=== PATIENT | male | born 1970 | race Caucasian/White ===

== ENCOUNTER 2024-05-22 09:42 | Outpatient (CLI) | payer BC, SELFPAY ==
--- NOTE | 2024-05-22 10:18 | MR_ITS ---
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 Software platform sequences were performed using the Siem[employer] MR B19 platform. A set of three-plane, low-resolution, large [id number] localizers were initially acquired. Then axial, coronal, sagittal TrueFISP, as well as axial HASTE images, were obtained. These were followed by gated TrueFISP breathold cinematic sequences obtained in the short axis with 8 mm slices and 2 mm gaps, 2-chamber (vertical long axis), 3-chamber, 4-chamber (horizontal long axis). A bolus of contrast was injected intravenously with first-pass sequences obtained in the short axis and four-chamber planes. After approximately 10 minutes, a TI christian science practitioner sequence was performed to determine the optimal TI time. Using the optimized TI time, delayed contrast enhancement segmented inversion???recovery TurboFLASH sequences were obtained in the short axis, 2-chamber, 3-chamber, and 4-chamber projections. 2D-velocity phase mapping was performed. Functional parameters were calculated by offline analysis on an independent workstation ([employer], [employer]). Contrast: ProHance??? (Gadoteridol) FINDINGS MORPHOLOGY AND FUNCTION Left ventricle: The left ventricle is normal in size. The indexed left ventricular end-diastolic volume (LVEDVi) is 71 ml/m2 (reference range 57-105 ml/m2 in males, 56-96 ml/m2 in females). Hyperdynamic left ventricular systolic function is present. There is asymmetric increase in left ventricular wall thickness. Maximum LV wall thickness is noted in the basal septal LV wall, up to 15.5 mm. There are no regional wall motion abnormalities noted. LVEF is calculated at 73.4% (reference range 57-77%). Right ventricle: The right ventricle is normal in size. The indexed right ventricular end-diastolic volume (RVEDVi) is 59 ml/m2 (reference range 61-121 ml/m2 in males, 48-112 ml/m2 in females). Normal right ventricular systolic function is present. RVEF is calculated at 53.7% (reference range 52-72% in males, 51-71% in females). Atria: The left atrium is normal in size. The maximum indexed left atrial volume is 41 ml/m2 (reference range 26-52 ml/m2 in males, 27-53 ml/m2 in females). The right atrium is normal in size. The maximum indexed right atrial volume is 19 ml/m2 (reference range 18-90 ml/m2). Aorta: The diameter of the aortic annulus is normal, measuring 30 mm (coronal view reference range 21-30 mm in males, 19-27 mm in females). The diameter of the aortic sinus is normal, measuring 28 mm (coronal view reference range 25-42 mm in males, 24-36 mm in females). The diameter of the sinotubular junction is normal, measuring 32 mm (coronal view reference range 18-32 mm in males, 18-28 mm in females). The diameters of the ascending and descending thoracic aorta are normal. Main pulmonary artery: The main pulmonary artery diameter is normal. Pericardium: The pericardial thickness is normal. The pericardial thickness measures 1.6 mm (normal < 4.0 mm). There is no pericardial effusion. VALVES There is systolic anterior motion of the mitral valve leaflets. No septal contact is noted. There is flow acceleration at the LVOT is noted, suggestive of increased LVOT gradient and possible LVOT obstruction at rest. Ratio of pulmonary to systemic flow, Qp:Qs ratio = 1.0 (normal < or = 1.2, hemodynamically significant shunt > 1.5), demonstrating no evidence of hemodynamically significant shunt. TISSUE CHARACTERIZATION Resting Perfusion: Normal myocardial blood flow at rest. No evidence of resting hypoperfusion. Myocardial Fibrosis and/or edema: Abnormal gadolinium kinetics are present. There is patchy late gadolinium enhancement (LGE) noted in the septal and anteroseptal LV bran. Quantification of LGE is technically difficult imaging in the setting of significant motion during image acquisition. OTHER No other significant findings are noted. However, this exam is focused on the cardiac structure and function. IMPRESSION Normal LV size with hyperdynamic LV systolic function. LVEDVi= 71 ml/m2 and LVEF= 73.4%. Marked asymmetric increase in LV wall thickness, up to 15.5 mm in the basal to mid septal LV wall.. Normal RV size with normal RV systolic function. RVEDVi= 59 ml/m2 and RVEF= 53.7%. No atrial enlargement. MV NETTE is present, with no evidence of septal contact. Flow acceleration at the LVOT is noted, suggestive of increased LVOT gradient and possible LVOT obstruction at rest. Patchy late gadolinium enhancement noted in the septal and anteroseptal LV bran. Quantification of LGE is technically difficult imaging in the setting of significant motion during image acquisition. Perfusion analysis demonstrates normal blood flow at rest with no evidence of resting hypoperfusion. Ratio of pulmonary to systemic flow, Qp:Qs ratio = 1.0 (normal < or = 1.2, hemodynamically significant shunt > 1.5), demonstrating no evidence of hemodynamically significant shunt. Overall, the constellation of the CMR findings, including asymmetric increase in LV wall thickness > 15 mm, systolic anterior motion of the mitral valve leaflets, and patchy LGE, are consistent with a diagnosis of HCM with preserved LVEF. Possible LVOT obstruction at rest is present. Correlation with recent TTE is recommended. Further evaluation of HCM and screening of immediate family members is also recommended. The LGE burden cannot be adequately quantified due to technically difficult imaging. Grossly, however, there is no CMR radiographic indication for primary-prevention ICD placement. COMPARISON None CRITICAL RESULT None COMMUNICATION Per this written report The findings of this cardiac MR were reviewed, reported, and signed by Flaquito Norris MD (Commercial Real Estate Agent). Conclusion Electronically signed by : Grace Norris MD 05/30/2024 00:01:24
[2024-05-22 10:41] LABS: Cholesterol 117 mg/dl (140-200); HDL Cholesterol 39 mg/dl (40-60); Triglycerides 84 mg/dl (30-150); VLDL Cholesterol 17 mg/dL (0-40)
[2024-05-22 10:47] LABS: C-Reactive Protein 0.6 mg/L (0-4)
[2024-05-22 10:52] LABS: Direct LDL Cholesterol 64.48 mg/dL (100-129)
[2024-05-22] MEDS: GADOTERIDOL INJ 20ML SYRINGE 20 ML IV (11:22)
[2024-05-22] MEDS: SODIUM CHLORIDE 0.9% 10ML SYR (RAD ONLY) 10 ML IV (11:22)
[2024-05-22] MEDS: 0.9 % SODIUM CHLORIDE 50 ML VIAL 25 ML IV (11:22)
[2024-05-22] MEDS: GADOTERIDOL INJ 10ML SYRINGE 2 ML IV (11:22)
== END 2024-05-22 23:59 | disposition home or self-care (01) ==
PROVIDERS: PCP Nurse Practitioner Family; Visit Provider Internal Medicine Interventional Cardiology
DX: I25.111 Atherosclerotic heart disease of native coronary artery with angina pectoris with documented spasm (principal); E78.00 Pure hypercholesterolemia, unspecified; Z86.73 Personal history of transient ischemic attack (TIA), and cerebral infarction without residual deficits
CPT/HCPCS: 36415; 75561; 80061; 83695; 86140; A9576